=== PATIENT | male | born 1990 | race Hispanic/Latino ===

== ENCOUNTER 2017-02-03 12:24 | Emergency (ER) | payer OTHER ==
[~2017-02-03] VITALS: Ht 167.6 cm; Wt 75.6 kg
[2017-02-03] MEDS ORDERED: MULT1TAB10 PO (12:34)
[2017-02-03] MEDS ORDERED: NAPROXEN 250 MG TAB PO ONE (13:45)
[2017-02-03] MEDS ORDERED: NAPR500T PO (14:16)
--- NOTE | 2017-02-03 14:25 | REP ---
LEFT SHOULDER, THREE VIEWS: HISTORY: Trauma. There is no acute fracture or dislocation. The joint spaces are normal in appearance. IMPRESSION: There is no acute fracture or dislocation. Signed by Ced Munoz MD 02/03/2017 02:27 P
[2017-02-03 14:34] VITALS: BP 140/65
== END 2017-02-03 14:36 | disposition home or self-care (01) ==
LOC: M ED 12:24
DX: S30.0XXA Contusion of lower back and pelvis, initial encounter (principal); S40.011A Contusion of right shoulder, initial encounter; F17.210 Nicotine dependence, cigarettes, uncomplicated; V43.92XA Unspecified car occupant injured in collision with other type car in traffic accident, initial encounter; Y92.488 Other paved roadways as the place of occurrence of the external cause; Y99.9 Unspecified external cause status; Y93.9 Activity, unspecified

== ENCOUNTER → 2018-06-17 | Outpatient (REF) | payer OTHER | LOC: M SFHCLERA 10:48 | DX: J02.9 Acute pharyngitis, unspecified (principal) ==